=== PATIENT | female | born 1985 | race African-American/Black ===

== ENCOUNTER 2021-05-09 12:13 | Outpatient (CLI) | payer BC ==
[2021-05-09 14:06] LABS: Alanine Aminotransferase 36 units/L (7-56); Albumin 4.7 g/dL (3.9-5); Blood Urea Nitrogen 9 mg/dL (7-17); Calcium 9.6 mg/dL (8.4-10.2); Chol/HDL Ratio 4.25 %; HDL Cholesterol 36 mg/dL (40-59); Hemolysis Index 2; LDL Cholesterol,Direct 90 mg/dL (50-130)
[2021-05-09 14:14] LABS: BUN/Creatinine Ratio 13
== END 2021-05-09 12:14 | disposition home or self-care (01) ==
LOC: LAB 12:13
PROVIDERS: ATTEND Obstetrics & Gynecology
DX: Z13.1 Encounter for screening for diabetes mellitus (principal); Z13.220 Encounter for screening for lipoid disorders; Z13.21 Encounter for screening for nutritional disorder; Z13.29 Encounter for screening for other suspected endocrine disorder
CPT/HCPCS: 36415; 80053; 80061; 82306; 83036; 84443; 86689; 86787; 86803; 87350

== ENCOUNTER 2021-06-04 13:35 | Outpatient (CLI) | payer BC ==
[2021-06-04 14:07] LABS: Hematocrit 36.6 % (30.3-42.9); Hemoglobin 12.5 gm/dl (10.1-14.3); Mean Corpuscular HGB Conc 34 % (30-34); Mean Corpuscular Volume 84 fl (79-97); Platelet Count 248 K/mm3 (140-440); Red Blood Count 4.35 M/mm3 (3.65-5.03); Red Cell Distribution Width 12.6 % (13.2-15.2)
== END 2021-06-04 13:36 | disposition home or self-care (01) ==
LOC: LAB 13:35
PROVIDERS: ATTEND Obstetrics & Gynecology
DX: Z13.0 Encounter for screening for diseases of the blood and blood-forming organs and certain disorders involving the immune mechanism (principal)
CPT/HCPCS: 36415; 85027; 86592